=== PATIENT | female | born 1965 | race Two or more races ===

== ENCOUNTER → 2018-09-17 | Outpatient (CLI) | payer BC ==
[2018-09-17 08:52] LABS: HCT 40.6 % (34.0-46.0); HGB 13.2 gm/dL (11.4-16.0); MCH 31.6 pg (25.0-35.0); MCHC 32.5 g/dL (31.0-37.0); MCV 97.3 fL (80.0-100.0); Mean Platelet Volume 7.9; Platelet Count 207 k/uL (150-450); RBC 4.17 m/uL (3.80-5.40); RDW 13.9 % (11.5-15.5); WBC 5.3 k/uL (3.8-10.6)
[2018-09-17 10:00] LABS: Appearance,Urine Clear (Clear); Bilirubin,Urine Negative (Negative); Blood,Urine Negative (Negative); Color,Urine Yellow; Glucose,Urine (UA) Negative (Negative); Ketones,Urine Negative (Negative); Leukocyte Esterase,Urine Negative (Negative); Nitrite,Urine Negative (Negative); Protein,Urine Negative (Negative); Specific Gravity,Urine 1.027 (1.001-1.035); Urobilinogen,Urine <2.0 mg/dL (<2.0)
[2018-09-17 16:12] LABS: African American GFR (CKD) 98.2 (60.0-200.0); Albumin 4.4 g/dL (3.80-4.90); Albumin/Globulin Ratio 2.1 (1.60-3.17); Anion Gap 5.7 mmol/L (4.00-12.00); Calcium 9.9 mg/dL (8.7-10.3); Carbon Dioxide 28.3 mmol/L (21.6-31.8); Globulin 2.1 g/dL (1.6-3.3); LDL Cholesterol,Calculated 121.4 mg/dL (0.0-131.0); Potassium 4.8 mmol/L (3.5-5.5); Total Protein 6.5 g/dL (6.2-8.2); VLDL Calculation 11.6 mg/dL (5.00-40.00)
== END ==
LOC: LABWHC1 08:04
PROVIDERS: ATTEND Internal Medicine
DX: Z00.00 Encounter for general adult medical examination without abnormal findings (principal)
CPT/HCPCS: 36415; 80053; 80061; 81003; 82306; 85027

== ENCOUNTER → 2024-02-01 | Outpatient (CLI) | payer BC ==
--- NOTE | 2024-02-01 08:19 | US ---
EXAMINATION TYPE: US abdomen limited DATE OF EXAM: 02/01/2024 COMPARISON: NONE CLINICAL INDICATION: Female, 58 years old with history of R10.9 Unspecified Abdominal pain; FU liver cyst TECHNIQUE: Grayscale and color Doppler imaging of the right upper quadrant was performed. FINDINGS: EXAM MEASUREMENTS: Liver Length: 14.3 cm Gallbladder Wall: 0.2 cm CBD: 0.3 cm Right Kidney: 9.1 x 4.2 x 4.3 cm Pancreas: Echogenic in appearance. Tail not well seen Liver: Left lobe anechoic lesion= 0.9 x 1.0 x 0.6 cm Gallbladder: No stones or wall thickening Evidence for sonographic Marte's sign: neg CBD: wnl Right Kidney: No hydronephrosis or masses seen Echogenic appearance of the pancreas likely related to fatty infiltration. The tail is obscured by ov erlying bowel gas. Noncirrhotic morphology. Left hepatic lobe 1 cm simple cyst. No cholelithiasis, wa ll thickening, or surrounding fluid. Negative sonographic Marte's sign. Common bile duct is within n ormal limits. Right kidney demonstrates no hydronephrosis, solid mass, or nephrolithiasis. IMPRESSION: 1. No ultrasound evidence for acute process. 2. Hepatic simple 1 cm cyst. [facility], , 02/01/2024 8:17 AM
== END | disposition home or self-care (01) ==
LOC: RADUSWWP 06:51
PROVIDERS: ATTEND Internal Medicine
DX: K76.89 Other specified diseases of liver (principal)
CPT/HCPCS: 76705